=== PATIENT | female | born 1995 | race Caucasian/White ===

== ENCOUNTER 2017-01-29 16:44 | Emergency (ER) | payer MEDICAID ==
[~2017-01-29] VITALS: Ht 160 cm; Wt 74.0 kg
[2017-01-29] MEDS ORDERED: BACITRACIN ZINC OINT UDPKT TOP ONE (19:45)
[2017-01-29 19:52] VITALS: BP 129/83
== END 2017-01-29 21:19 | disposition home or self-care (01) ==
LOC: ER 19:55
DX: M25.562 Pain in left knee (principal); I10 Essential (primary) hypertension
CPT/HCPCS: 73562; 81025; 99284